=== PATIENT | male | born 1970 | race Caucasian/White ===

== ENCOUNTER 2023-02-28 12:41 | Emergency (ER) | payer BC, OTHER, SELFPAY ==
[2023-02-28 12:43] VITALS: BP 148/86; PULSE 81; RESP 16; TEMP 36.7; O2SAT 97; BMI 23.6
--- NOTE | 2023-02-28 12:47 | DI.US.S_ITS ---
PROCEDURE: US SCROTUM INDICATIONS: RIGHT TESTICULAR PAIN. HISTORY OF EPIDIDYMITIS x 2 YEARS AGO TECHNIQUE: Real-time scanning was performed of the scrotum and testicles, with image documentation. Color and pulse Doppler interrogation was performed of both testicles. COMPARISON: None. FINDINGS: Right: Testicle is normal in size at 4 x 3.1 x 2.1 cm, and homogenous in echotexture. Epididymis is normal in overall size and demonstrates multiple epididymal head cysts, with the largest measuring up to 11 mm. There is a small right-sided hydrocele. Overlying scrotal skin is normal in thickness. Left: Testicle is normal in size at 4.2 x 2.6 x 2.2 cm, and homogeneous in echotexture. Epididymis is normal in overall size and demonstrating multiple epididymal cysts, with the largest measuring up to 4 mm. There is a moderate complex hydrocele on the left. Overlying scrotal skin is normal in thickness. Doppler: Color and pulse Doppler demonstrate normal and symmetric arterial flow in both testicles. Normal appearing vascularity can be seen involving the epididymis on both sides, which is not abnormally increased. No varicocele can be seen on either side. IMPRESSION: No abnormal vascularity can be seen of the epididymis to suggest epididymitis. Normal appearing testicles, without masses or abnormal vascularity. Bilateral hydroceles are seen, left worse than right. Dictated by: Ravi Lepe M.D. on 02/28/2023 at 13:22 Approved by: Ravi Lepe M.D. on 02/28/2023 at 13:25
--- NOTE | 2023-02-28 12:54 | ED_ITS ---
HPI - Male Genitourinary <Chau Mcpherson PA-C - Last Filed: 02/28/23 14:41> General Chief complaint: Urogenital-Male Stated complaint: right testicular pain Time Seen by Provider: 02/28/23 12:47 Source: patient Mode of arrival: Ambulatory History of Present Illness HPI Narrative: This is a 52-year-old male presents emergency department due to right testicular pain for the last 4 days. Not report a severe pain but states that it feels like it is ?being flicked?. Denies any fevers, urinary frequency, nausea, vomiting, abdominal pain, or any other concerning signs or symptoms. Has a history of epididymitis and states that this feels somewhat similar. Related Data Home Medications Medication Instructions Recorded Confirmed loratadine 10 mg tablet (Allergy 10 mg PO DAILY 02/13/23 02/13/23 Relief (loratadine)) Previous Rx's Medication Instructions Recorded terazosin 2 mg capsule 4 mg (2 x 2 mg) PO BEDTIME #180 02/13/23 caps Allergies Allergy/AdvReac Type Severity Reaction Status Date / Time shellfish derived Allergy Severe Anaphylaxis Verified 02/28/23 12:43 iodine AdvReac Intermediate Hives Verified 02/28/23 12:43 Review of Systems <Chau Mcpherson PA-C - Last Filed: 02/28/23 14:41> Review of Systems Narrative: GENERAL: Denies chills, fatigue, malaise, fever, sweats. HEENT: Denies sinus pain, ear pain, sore throat, difficulty swallowing, dizziness. RESPIRATORY: Denies dyspnea, cough, wheezing, hemoptysis, sputum. CARDIOVASCULAR: Denies chest pain, palpitations, orthopnea, edema, GASTROINTESTINAL: Denies nausea, vomiting, abdominal pain, diarrhea, constipation, melena. : Reports testicular discomfort MUSCULOSKELETAL: denies weakness, joint pain, or bony pain SKIN: Denies rash, skin lesions, or other NEUROLOGIC: Denies weakness, headache, numbness, change in speech, confusion, seizures, incoordination. PSYCHIATRIC: No concerning psychosocial issues. 12 point review of systems is negative except for those stated above Patient History <LEN Cheney Last Filed: 02/28/23 14:41> Social History Smoking Status: Never smoker Smoking Status: Never smoker Substance Use Type: does not use Exam <LEN Cheney Filed: 02/28/23 14:41> Narrative Exam Narrative: GENERAL: Well-developed patient, in mild distress. HEAD: Atraumatic. Normocephalic. EYES: Pupils equal round and reactive. Extraocular motions intact. No scleral icterus. No injection or drainage. ENT: Nose without bleeding, purulent drainage. Throat without erythema, tonsillar hypertrophy or exudate. Airway patent. NECK: Trachea midline. Non tender CARDIOVASCULAR: Regular rate and rhythm without murmurs, gallops, or rubs. RESPIRATORY: Clear to auscultation. Breath sounds equal bilaterally. No wheezes, rales, or rhonchi. GASTROINTESTINAL: Abdomen soft, non-tender, nondistended. EXTREMITIES: No edema or joint tenderness. BACK: Nontender without deformity or crepitance. No flank tenderness. NEURO: AOx3. SKIN: No rash or erythema of visible areas : No significant pain with manipulation of the testicles. No erythema or any other abnormalities. Initial Vital Signs Initial Vital Signs: Vital Signs Temperature 98.1 F 02/28/23 12:43 Pulse Rate 81 02/28/23 12:43 Respiratory Rate 16 02/28/23 12:43 Blood Pressure 148/86 H 02/28/23 12:43 Pulse Oximetry 97 02/28/23 12:43 Oxygen Delivery Method Room Air 02/28/23 12:43 <Dru Christie DO - Last Filed: 02/28/23 15:41> Initial Vital Signs Initial Vital Signs: Vital Signs Temperature 98.1 F 02/28/23 12:43 Pulse Rate 81 02/28/23 12:43 Respiratory Rate 16 02/28/23 12:43 Blood Pressure 148/86 H 02/28/23 12:43 Pulse Oximetry 97 02/28/23 12:43 Oxygen Delivery Method Room Air 02/28/23 12:43 Course <Chau Mcpherson PA-C - Last Filed: 02/28/23 14:41> Orders Ordered: ED Orders 02/28/23 12:47 US scrotum Stat Vital Signs Vital signs: Vital Signs - 8 hr 02/28/23 12:43 02/28/23 14:41 Temperature 98.1 F Pulse Rate 81 84 Respiratory Rate 16 16 Blood Pressure 148/86 H 146/78 H Pulse Oximetry 97 99 Oxygen Delivery Method Room Air Room Air <Dru Christie DO - Last Filed: 02/28/23 15:41> Orders Ordered: ED Orders 02/28/23 12:47 US scrotum Stat Vital Signs Vital signs: Vital Signs - 8 hr 02/28/23 12:43 02/28/23 14:41 Temperature 98.1 F Pulse Rate 81 84 Respiratory Rate 16 16 Blood Pressure 148/86 H 146/78 H Pulse Oximetry 97 99 Oxygen Delivery Method Room Air Room Air MDM - Male Genitourinary <Chau Mcpherson PA-C - Last Filed: 02/28/23 14:41> Lab Data Labs: Urine Dip Bedside Urine Glucose Negative Bedside Urine Bilirubin - Negative Bedside Urine Ketone - Negative Urine Specific [place] 1.005 Bedside Urine Occult Blood - Negative Bedside Urine pH 5.5 Bedside Urine Protein - Negative Bedside Urine Urobilinogen - Negative Bedside Urine Nitrite - Negative Bedside Urine Leukocytes - Negative Esterase Imaging Data US scrotum : Radiologist's Impression: [address] [address] Ultrasound Report Signed Patient: Edgard Aly MR#: [id number] : 1970 Acct:[id number] Age/Sex: 52 / M Date of Service: 02/28/23 Loc: ED Accession Number: [id number] Procedure: US scrotum Ordering Provider: Chau Mcpherson P.A-C PROCEDURE: US SCROTUM INDICATIONS: RIGHT TESTICULAR PAIN. HISTORY OF EPIDIDYMITIS x 2 YEARS AGO TECHNIQUE: Real-time scanning was performed of the scrotum and testicles, with image documentation. Color and pulse Doppler interrogation was performed of both testicles. COMPARISON: None. FINDINGS: Right: Testicle is normal in size at 4 x 3.1 x 2.1 cm, and homogenous in echotexture. Epididymis is normal in overall size and demonstrates multiple epididymal head cysts, with the largest measuring up to 11 mm. There is a small right-sided hydrocele. Overlying scrotal skin is normal in thickness. Left: Testicle is normal in size at 4.2 x 2.6 x 2.2 cm, and homogeneous in echotexture. Epididymis is normal in overall size and demonstrating multiple epididymal cysts, with the largest measuring up to 4 mm. There is a moderate complex hydrocele on the left. Overlying scrotal skin is normal in thickness. Doppler: Color and pulse Doppler demonstrate normal and symmetric arterial flow in both testicles. Normal appearing vascularity can be seen involving the epididymis on both sides, which is not abnormally increased. No varicocele can be seen on either side. IMPRESSION: No abnormal vascularity can be seen of the epididymis to suggest epididymitis. Normal appearing testicles, without masses or abnormal vascularity. Bilateral hydroceles are seen, left worse than right. Dictated by: Ravi Lepe M.D. on 02/28/2023 at 13:22 Approved by: Ravi Lepe M.D. on 02/28/2023 at 13:25 MDM Narrative Medical decision making narrative: ED course: This is a 52-year-old male presents emergency department due to 4 days of right-sided testicular pain. Ultrasound ordered which showed no evidence of epididymitis or any other acute abnormalities. Did show bilateral hydrocele. Recommended patient is speak to his primary care provider for referral to urology for follow up. Recommended scrotal elevation, NSAIDs, and ice pack use to help with the discomfort. UA showed no evidence of a UTI. CC: Testicular pain Complicating co-morbidities: History of BPH Data collected from: Previous notes Medical records reviewed: History of BPH, takes terazosin. Differential considered, but not limited to: Testicular torsion, epididymitis, hydrocele, epididymal cyst Exam documented above, pertinent findings include: No concerning findings Lab Test results independently reviewed as above. Pertinent findings: None Imaging studies independently reviewed: Ultrasound report showed no evidence of epididymitis or torsion. Did show hydrocele. Scores Used: None MIPS Elements: None Consultations: None Treatments: None Re-evaluations: Discussed ultrasound report findings with the patient. Discussion: Discussed plan with the patient was comfortable with the plan Diagnosis: Hydrocele Disposition: see below, along with detailed discharge instructions that have been reviewed with patient as well as indications for ED re-evaluation and additional outpatient follow up <Dru Christie DO - Last Filed: 02/28/23 15:41> Lab Data Labs: Urine Dip Bedside Urine Glucose Negative Bedside Urine Bilirubin - Negative Bedside Urine Ketone - Negative Urine Specific [place] 1.005 Bedside Urine Occult Blood - Negative Bedside Urine pH 5.5 Bedside Urine Protein - Negative Bedside Urine Urobilinogen - Negative Bedside Urine Nitrite - Negative Bedside Urine Leukocytes - Negative Esterase Discharge Plan Departure Patient Disposition: Home Clinical Impression: Hydrocele Instructions: DI for Hydrocele-Adult Activity Restrictions/Additional Instructions: Thank you for coming to the [facility] Emergency Department today. As we discussed your ultrasound report showed no evidence of epididymitis or any kind of testicular torsion. Did show bilateral hydrocele. Please follow up with Urology regarding this as this can be managed on an outpatient basis. You may speak with the primary care provider for a you referral to Urology. Your urine showed no evidence of a UTI. Please return to the emergency department if you develop any significant pain, fevers, abdominal pain, or any other concerning signs or symptoms. I hope you feel better soon. Please follow up with your primary care provider within a week if your symptoms continue. If you do not have a primary care provider please contact the [facility] Resource line at [phone]. They will ask some questions about your medical history and help you get set up with a provider in the community. Prescriptions: No Action loratadine [Allergy Relief (loratadine)] 10 mg tablet 10 mg PO DAILY terazosin 2 mg capsule 4 mg PO BEDTIME Qty: 180 3RF Referrals: Blanca Perkins MD [Primary Care Provider] - Stand Alone Forms: Patient Portal/API ED Sign-out <Dru Christie DO - Last Filed: 02/28/23 15:41> Cosign ED Attending Cosignature Attestation: Dr Christie Co-Sign Statement: I was available for consultation during this patient's emergency department visit. This chart is signed by myself for administrative purposes only. I did not have direct contact with this patient during this visit. They were seen independently by the APC.
--- NOTE | 2023-02-28 13:02 | PC.NURSE ---
Pt is able to palpate something small,pea sized in right scrotum.
[2023-02-28 14:41] VITALS: BP 146/78; PULSE 84; RESP 16; O2SAT 99
== END 2023-02-28 14:42 | disposition home or self-care (01) ==
PROVIDERS: Emergency Provider Physician Assistant Medical; PCP Family Medicine
DX: N43.3 Hydrocele, unspecified (principal)
CPT/HCPCS: 76870; 81003; 93975; 99283

== ENCOUNTER 2023-08-20 14:05 | Emergency (ER) | payer OTHER, SELFPAY ==
[2023-08-20] VITALS (9 sets, daily range): BP systolic 131–161; BP diastolic 87–91; PULSE 59–69; RESP 14–20; TEMP 36.7; O2SAT 98–99; BMI 24.3
--- NOTE | 2023-08-20 14:14 | EKG_ITS ---
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
--- NOTE | 2023-08-20 14:14 | DI.RAD.S_ITS ---
PROCEDURE: XR CHEST 1V INDICATIONS: chest pain TECHNIQUE: One view of the chest was acquired. COMPARISON: None. FINDINGS: Surgical changes and devices: None. Lungs and pleura: Lungs are clear. No pleural effusions or pneumothorax. Mediastinum: Mediastinal contours appear normal. Heart size is normal. Bones and chest wall: No suspicious bony lesions. Overlying soft tissues appear unremarkable. IMPRESSION: No acute cardiopulmonary abnormality is seen. Dictated by: Moris Baer M.D. on 08/20/2023 at 15:12 Approved by: Moris Baer M.D. on 08/20/2023 at 15:12
[2023-08-20 14:36] LABS: Add Manual Diff / Slide Review NO; Basophils Absolute Auto 0 /uL (0-100); Basophils Percent Auto 0.3 % (0-2); Eosinophils Absolute Auto 200 /uL (0-450); Eosinophils Percent Auto 3.5 % (2-4); Hematocrit 42.7 % (41-53); Hemoglobin 14.6 g/dL (13.5-17.5); Lymphocytes Absolute Auto 1700 /uL (1100-4500); Lymphocytes Percent Auto 23.9 % (25-40); Mean Corpuscular HGB Conc 34.2 % (30-36); Mean Corpuscular Hemoglobin 30.3 PG (26-34); Mean Corpuscular Volume 88.6 fL (80-100); Monocytes Absolute Auto 500 /uL (0-900); Monocytes Percent Auto 7.6 % (3-14); Neutrophils Absolute Auto 4500 /uL (1500-7000); Neutrophils Percent Auto 64.7 % (50-75); Platelet Count 358 X10^3/uL (150-400); Red Blood Cell Count 4.82 X10^6/uL (4.5-5.9); Red Cell Distribution Width 13.9 % (11.6-14.8)
[2023-08-20 14:41] LABS: INR 0.9 (0.9-1.3); Prothrombin Time 10.4 SECONDS (9.4-12.5)
[2023-08-20 14:47] LABS: Alanine Aminotransferase 27 IU/L (<50); Albumin 4.4 g/dL (3.5-5.0); Albumin Globulin Ratio 1.5 (1.0-2.8); Alkaline Phosphatase 70 U/L (38-126); Aspartate Aminotransferase 33 IU/L (17-59); Bilirubin Total 0.7 mg/dL (0.2-1.3); Blood Urea Nitrogen 19 mg/dL (9-20); Calcium 8.9 mg/dL (8.4-10.2); Carbon Dioxide 27 mmol/L (22-32); Chloride 107 mmol/L (98-107); Creatine Kinase 245 U/L (55-170); Estimated Glomerular Filt Rate > 60 mL/min (>60); Glucose 93 mg/dL (70-100); HEMOLYSIS < 15 (0-50); Lipase 78 U/L (23-300); Magnesium 2.2 mg/dL (1.6-2.3); Sodium 139 mmol/L (137-145); Total Protein 7.4 g/dL (6.3-8.2)
[2023-08-20] MEDS: ASPIRIN 81 MG CHEW TAB 324 MG PO (14:47)
[2023-08-20 14:54] LABS: PTT Partial Thromboplastin Tim 37 SECONDS (25.1-36.5)
[2023-08-20 14:58] LABS: NT-proBNP (BNP-Adult 18+) 33 pg/mL (<125); Troponin I < 0.012 ng/mL (0.01-0.034)
[2023-08-20 17:31] LABS: Troponin I < 0.012 ng/mL (0.01-0.034)
--- NOTE | 2023-08-20 18:01 | ED.CHESTPAIN ---
HPI - Chest Pain General Chief Complaint: Chest Pain Stated Complaint: chest pains Time Seen by Provider: 08/20/23 16:34 Source: patient Mode of arrival: Ambulatory History of Present Illness HPI narrative: 53-year-old male with chest pain intermittently since last night, worse with right lateral neck movements and neck flexion movements, not necessarily with any arm movements or deep breathing, did try some ibuprofen that seemed to decrease the pain. No history of known coronary artery disease, no prior chest pain workups recalled, denies cardiac risk factors of diabetes hypertension hyperlipidemia smoking family history. No associated nausea or diaphoresis. Symptoms seem worse and reproducible when he moves his neck to the right, and flexes his neck, often times with some right parasternal chest discomfort as well. He thinks he might have slept funny on his pillow the night before. No recent fevers, cough, shortness of breath. No history known of blood clots to legs or lungs, no leg pain or swelling symptoms Related Data Home Medications Medication Instructions Recorded Confirmed loratadine 10 mg tablet (Allergy 10 mg PO DAILY 02/13/23 02/13/23 Relief (loratadine)) Previous Rx's Medication Instructions Recorded terazosin 2 mg capsule 4 mg (2 x 2 mg) PO BEDTIME #180 02/13/23 caps Allergies Allergy/AdvReac Type Severity Reaction Status Date / Time shellfish derived Allergy Severe Anaphylaxis Verified 02/28/23 12:43 iodine AdvReac Intermediate Hives Verified 02/28/23 12:43 Review of Systems Review of Systems Narrative: per HPI Patient History Social History Smoking Status: Former smoker Smoking Status: Former smoker Substance Use Type: does not use Exam Narrative Exam Narrative: GENERAL: Well-developed patient, in mild distress. HEAD: Atraumatic. Normocephalic. EYES: Pupils equal round and reactive. Extraocular motions intact. No scleral icterus. No injection or drainage. ENT: Nose without bleeding, purulent drainage. Throat without erythema, tonsillar hypertrophy or exudate. Airway patent. NECK: Trachea midline. Non tender CARDIOVASCULAR: Regular rate and rhythm without murmurs, gallops, or rubs. RESPIRATORY: Clear to auscultation. Breath sounds equal bilaterally. No wheezes, rales, or rhonchi. GASTROINTESTINAL: Abdomen soft, non-tender, nondistended. EXTREMITIES: No edema or joint tenderness. BACK: Nontender without deformity or crepitance. No flank tenderness. NEURO: AOx3. SKIN: No rash or erythema of visible areas Initial Vital Signs Initial Vital Signs: Vital Signs Temperature 98.1 F 08/20/23 14:17 Pulse Rate 69 08/20/23 14:17 Respiratory Rate 16 08/20/23 14:17 Blood Pressure 161/89 H 08/20/23 14:17 Pulse Oximetry 98 08/20/23 14:17 Oxygen Delivery Method Room Air 08/20/23 14:17 Course Orders Ordered: Discontinued Medications Aspirin (Aspirin 81 Mg Chew Tab) 324 mg PO NOW ONE Stop: 08/20/23 14:15 Last Admin: 08/20/23 14:47 Dose: 324 mg Documented By: RB Vital Signs Vital signs: Vital Signs - 8 hr 08/20/23 14:17 08/20/23 15:00 08/20/23 16:00 Temperature 98.1 F Pulse Rate 69 62 Respiratory Rate 16 18 Blood Pressure 161/89 H 134/88 133/90 Pulse Oximetry 98 99 Oxygen Delivery Method Room Air Room Air 08/20/23 16:10 08/20/23 16:10 08/20/23 16:30 Temperature Pulse Rate 62 Respiratory Rate 16 Blood Pressure 137/87 141/88 H Pulse Oximetry 98 Oxygen Delivery Method 08/20/23 16:30 Temperature Pulse Rate 62 Respiratory Rate 14 Blood Pressure Pulse Oximetry 98 Oxygen Delivery Method MDM - Chest Pain Lab Data Attestation: I reviewed the patient's lab results. Lab results narrative: Unremarkable CBC, CMP, troponin x2 studies negative 08/20/23 14:25 08/20/23 14:25 Labs: Lab Results 08/20/23 08/20/23 Range/Units 14:25 16:55 WBC 7.0 (4.5-11.0) X10^3/uL RBC 4.82 (4.5-5.9) X10^6/uL Hgb 14.6 (13.5-17.5) g/dL Hct 42.7 (41-53) % MCV 88.6 (80-100) fL MCH 30.3 (26-34) PG MCHC 34.2 (30-36) % RDW 13.9 (11.6-14.8) % Plt Count 358 (150-400) X10^3/uL Neut % (Auto) 64.7 (50-75) % Lymph % (Auto) 23.9 L (25-40) % [place] % (Auto) 7.6 (3-14) % Eos % (Auto) 3.5 (2-4) % Baso % (Auto) 0.3 (0-2) % Neut # (Auto) 4500 (0780-8086) /uL Lymph # (Auto) 1700 (7265-8944) /uL [place] # (Auto) 500 (0-900) /uL Eos # (Auto) 200 (0-450) /uL Baso # (Auto) 0 (0-100) /uL PT 10.4 (9.4-12.5) SECONDS INR 0.9 (0.9-1.3) APTT 37 H (25.1-36.5) SECONDS Sodium 139 (137-145) mmol/L Potassium 4.0 (3.4-5.1) mmol/L Chloride 107 (98-107) mmol/L Carbon Dioxide 27 (22-32) mmol/L BUN 19 (9-20) mg/dL Creatinine 0.95 (0.66-1.25) mg/dL Estimated GFR > 60 (>60) mL/min BUN/Creatinine Ratio 20.0 (6-22) Glucose 93 (70-100) mg/dL Calcium 8.9 (8.4-10.2) mg/dL Magnesium 2.2 (1.6-2.3) mg/dL Total Bilirubin 0.7 (0.2-1.3) mg/dL AST 33 (17-59) IU/L ALT 27 (<50) IU/L Alkaline Phosphatase 70 (38-126) U/L Total Creatine Kinase 245 H (55-170) U/L Troponin I < 0.012 < 0.012 (0.01-0.034) ng/mL NT-Pro-B Natriuret Pep 33 (<125) pg/mL Total Protein 7.4 (6.3-8.2) g/dL Albumin 4.4 (3.5-5.0) g/dL Globulin 3.0 (1.7-4.1) g/dL Albumin/Globulin Ratio 1.5 (1.0-2.8) Lipase 78 (23-300) U/L Imaging Data Chest x-ray: Radiologist's Impression: [address] [address] XRay Report Signed Patient: Edgard Aly MR#: [id number] : 1970 Acct:[id number] Age/Sex: 53 / M Date of Service: 08/20/23 Loc: ED Accession Number: [id number] Procedure: XR chest 1V Ordering Provider: Dru Christie D.O. PROCEDURE: XR CHEST 1V INDICATIONS: chest pain TECHNIQUE: One view of the chest was acquired. COMPARISON: None. FINDINGS: Surgical changes and devices: None. Lungs and pleura: Lungs are clear. No pleural effusions or pneumothorax. Mediastinum: Mediastinal contours appear normal. Heart size is normal. Bones and chest wall: No suspicious bony lesions. Overlying soft tissues appear unremarkable. IMPRESSION: No acute cardiopulmonary abnormality is seen. Dictated by: Moris Baer M.D. on 08/20/2023 at 15:12 Approved by: Moris Baer M.D. on 08/20/2023 at 15:12 ECG Data Attestation: I personally reviewed and interpreted this ECG as follows: Interpretation: Normal sinus rhythm with rate of 64, no obvious ST segment elevation or depression changes. [place] 128, QRS 90, QTC 416. MDM Narrative Medical decision making narrative: 53-year-old male with right parasternal chest discomfort intermittently since last night, some reproducibility with right lateral neck movements and neck flexion movements, seems musculoskeletal in nature, some responsiveness to self dosing ibuprofen. EKG without obvious ischemia. Given aspirin. No current chest pain. Troponin studies x2 negative. Chest x-ray negative. Low risk by cardiac risk factors. Further workup as needed as an outpatient for now. Patient agreeable. He declines any ibuprofen or further treatment in the emergency department. Follow up with PCP. Return precautions discussed Discharge Plan Departure Patient Disposition: Home Clinical Impression: Atypical chest pain, Costalchondritis Instructions: DI for Chest Pain Activity Restrictions/Additional Instructions: Intermittent right parasternal anterior chest discomfort since last night, seems to be some reproducibility with neck lateral rotation to the right, and neck flexion, some response to self administered ibuprofen, possible musculoskeletal etiology. EKG without obvious ischemic changes. Chest x-ray no acute changes. Unremarkable other laboratory studies. Troponin negative, no evidence for heart attack at this time. Continue use of ibuprofen, take aspirin daily. Further workup as an outpatient for now. Follow up with your regular provider in the next couple of days early next week. Return to this/nearest emergency department for any change worsening symptoms or any concerns prior Prescriptions: No Action loratadine [Allergy Relief (loratadine)] 10 mg tablet 10 mg PO DAILY terazosin 2 mg capsule 4 mg PO BEDTIME Qty: 180 3RF Referrals: Blanca Perkins MD [Primary Care Provider] - Stand Alone Forms: Patient Portal/API
== END 2023-08-20 18:43 | disposition home or self-care (01) ==
PROVIDERS: Emergency Medicine; Emergency Provider Emergency Medicine; PCP Family Medicine
DX: M94.0 Chondrocostal junction syndrome [Tietze] (principal); R07.89 Other chest pain; Z87.891 Personal history of nicotine dependence
CPT/HCPCS: 36415; 71045; 80053; 82550; 83690; 83735; 83880; 84484; 85025; 85610; 85730; 93005; 99284

== ENCOUNTER → 2024-08-24 16:47 | Outpatient (CLI) | payer OTHER, SELFPAY ==
[2024-08-24 18:42] LABS: Cholesterol 229 mg/dL (140-199); HDL Cholesterol 50 mg/dL (40-60); Triglycerides 236 mg/dL (35-150)
[2024-08-24 19:13] LABS: Prostate Specific Antigen 1.93 ng/mL (0.10-4.00)
[2024-08-24 22:08] LABS: Hemoglobin A1C% w Est Avg Glu 5.3 % (4.0-6.0)
== END ==
PROVIDERS: PCP Family Medicine; Referring Provider Family Medicine; Visit Provider Family Medicine
DX: Z13.1 Encounter for screening for diabetes mellitus (principal); Z13.220 Encounter for screening for lipoid disorders; N40.0 Benign prostatic hyperplasia without lower urinary tract symptoms
CPT/HCPCS: 36415; 80061; 83036; 84153

== ENCOUNTER → 2024-12-05 16:26 | Outpatient (CLI) | payer OTHER, SELFPAY ==
[2024-12-05 18:09] LABS: Cholesterol 252 mg/dL (140-199); HDL Cholesterol 64 mg/dL (40-60); Triglycerides 93 mg/dL (35-150)
== END ==
PROVIDERS: PCP Family Medicine; Referring Provider Family Medicine; Visit Provider Family Medicine
DX: Z13.220 Encounter for screening for lipoid disorders (principal)
CPT/HCPCS: 36415; 80061

== ENCOUNTER → 2025-02-03 09:44 | Outpatient (CLI) | payer OTHER, SELFPAY | PROVIDERS: PCP Family Medicine; Referring Provider Family Medicine; Visit Provider Family Medicine | DX: M70.21 Olecranon bursitis, right elbow (principal) | CPT/HCPCS: 87070; 87075; 87205 ==